=== PATIENT | male | born 1990 | race African-American/Black ===

== ENCOUNTER 2025-02-21 19:44 | Emergency (ER) | payer SELFPAY ==
[2025-02-21] MEDS: Sulfamethoxazole/Trimethoprim 800-160 MG Tab PO ONE (21:08)
[2025-02-21] MEDS: Ketorolac 30 MG/ML SDV IM ONE (21:14)
[2025-02-21] MEDS: Ketorolac 30 MG/ML SDV ONE (21:25)
[2025-02-21] MEDS: Ketorolac 30 MG/ML SDV IVPUSH ONE (21:26)
== END 2025-02-21 21:25 | disposition home or self-care (01) ==
LOC: KA.ED 19:44
DX: L03.312 Cellulitis of back [any part except buttock and flank] (principal); Z79.899 Other long term (current) drug therapy
CPT/HCPCS: 96372; 99283; A9270-GY; J1885